=== PATIENT | male | born 1985 | race Caucasian/White ===

== ENCOUNTER → 2021-03-20 | Outpatient (CLI) | payer OTHER ==
[~2021-03-20] MED LIST: CYCL10 PO; ESOM20 PO; HYDR1TAB94 PO; IBUP600 PO; Prednisone20 MG PO; RANI150 PO; Roxicodone5 MG PO
== END | disposition home or self-care (01) ==
LOC: LAB 13:49 → LAB SHORT 13:49
DX: U07.1 COVID-19 (principal)
CPT/HCPCS: 85379